=== PATIENT | male | born 1975 | race Caucasian/White ===

== ENCOUNTER 2018-01-14 09:22 | Emergency (ER) | payer BC, SELFPAY ==
[2018-01-14 09:26] VITALS: BP 160/88; PULSE 70; RESP 12; TEMP 37.2; O2SAT 96
--- NOTE | 2018-01-14 10:05 | W.ED.GENAD ---
Discharge Plan Disposition Patient Disposition: HOME Condition: Improving Discharge Details Chief Complaint: Laceration Clinical Impression: Laceration of left upper arm Primary Care Provider: Telma Lobato ED Provider: Rico Guerrier Home Meds and New Rx's Prescriptions: New clindamycin HCl 150 mg capsule 450 mg PO TID Qty: 27 RF: 0 Continue ADVIL 200 MG capsule 200 mg PO PRN RF: 0 loratadine [Claritin] 10 MG tablet 10 mg PO PRN RF: 0 epinephrine [EpiPen 2-George] 0.3 MG/0.3 ML auto-injector 0.3 mg IM PRN Qty: 4 RF: 1 fluticasone [Flonase Allergy Relief] 9.9 ML spray,suspension 9.9 ml NS DAILY Qty: 1 RF: 3 Discharge Instructions Instructions: Care For Your Stitches (ED), Laceration (ED) Additional Instructions: Return for any signs of infection. otherwise keep wound clean and dry and return in 2 weeks for suture removal. Referrals: [facility] Emergency Dept. [Outside] - 2 weeks (for suture removal) Discharge Data Discharge Date/Time-TO BE ENTERED AT DEPARTURE: 01/14/18 12:43 Medical Decision Making Patient presenting to the emergency department for laceration to left upper arm/bicep on medial aspect . Laceration is a triangle in shape and is deep with muscle exposed but it does appear that the fascia is intact. Patient denies any other injury or trauma and physical exam is otherwise unremarkable with full range of motion of left upper extremity, full sensation, normal capillary refill and pulses. Please see procedure for wound closure. wound is 5.5 x 3.5 x 6 cm triangular in shape Patient was given tetanus to update his patient states that it is been greater than 5 years. Given that there was some contamination of the wound and wound was deep patient placed upon clindamycin due to penicillin allergy and patient encouraged to watch for any signs of infection return immediately if these occur. After discussion of diagnosis and plan of care patient is no further needs, questions, or concerns and states clear understanding to return to the emergency department for any worsening symptoms. HPI General Date/Time Provider Initiated Documentation: 01/14/18 09:55. Limitations to Documentation: no limitations. Information obtained by: patient and RN notes reviewed. History of Present Illness 42 year old M presents to the emergency department with the chief complaint of Left upper arm laceration, described as moderate, with intensity rated at 7. Quality is described as aching, and is localized to the left and upper extremity. Patient started experiencing this hour(s) (1.5) and it has been constant. No relieving factors improve symptom(s), No exacerbating factors reported . Patient notes no other symptoms.. Patient did receive the following treatments prior to arrival, none Related Data Home Medications Medication Instructions Recorded Confirmed Advil 200 mg PO PRN 07/27/12 01/14/18 loratadine [Claritin] 10 mg PO PRN 07/27/12 01/14/18 epinephrine [EpiPen 2-George] 0.3 mg IM PRN #4 pen 08/22/14 01/14/18 fluticasone [Flonase Allergy 9.9 ml NS DAILY #1 bottle 08/22/14 01/14/18 Relief] clindamycin HCl 450 mg PO TID #27 cap 01/14/18 Previous Rx's Medication Instructions Recorded clindamycin HCl 450 mg PO TID #27 cap 01/14/18 Allergies Allergy/AdvReac Type Severity Reaction Status Date / Time venom-honey bee Allergy Severe Anaphylaxsi Unverified 01/14/18 09:36 s Penicillins Allergy Unknown Unverified 01/14/18 09:36 General Stated Complaint: Laceration CHRISTIANO: 3 Review of Systems Eyes Denies change in vision ENT Denies neck pain Cardiovascular Denies chest pain, Denies syncope and Denies dyspnea Respiratory Denies dyspnea Gastrointestinal Denies abdominal pain, Denies nausea and Denies vomiting Musculoskeletal Denies back pain and Denies neck pain Integumentary/Breasts Reports as per HPI and Denies rash Neurologic Denies confusion, Denies syncope and Denies sensory deficit Psychiatric Denies confusion PFSH Family History Mother Hypertensive disorder, systemic arterial Diabetes Alcohol abuse Father Hypertensive disorder, systemic arterial Diabetes Sister Hypertensive disorder, systemic arterial Gastric bypass status for obesity Social History Smoking/Tobacco Use Status: Never Surgical History Excision, Lipoma (08/15/12) Exam Const General: cooperative, no acute distress and not ill appearing Orientation: alert, awake and oriented x3 HENMT Mouth: moist mucous membranes Resp Effort & Inspection: normal respiratory effort, able to speak in complete sentences and no respiratory distress Cardio Rate: regular rate Rhythm: regular rhythm Skin General skin exam: no rashes or lesions noted Neuro General: alert, awake, oriented x3, moves all extremities and no focal motor deficits Sensory Exam: no sensory deficits noted Extrem Left upper extremity: shoulder/upper arm Details: axillary nerve sensory function normal, normal ROM and laceration (Medial aspect of the upper humerus); no deformity, elbow/forearm Details: normal to inspection, wrist Details: normal to inspection and hand Details: normal to inspection, normal capillary refill, neuromotor exam normal, neurosensory exam normal and tendon exam normal Shoulder/upper arm images: 1. laceration, deep, Course Vital Signs Temperature 37.2 C 01/14/18 09:26 Pulse 70 01/14/18 09:26 Respiratory Rate 12 01/14/18 09:26 Blood Pressure 160/88 H 01/14/18 09:26 Pulse Oximetry 96 01/14/18 09:26 Temperature 37.2 C 01/14/18 09:26 Temperature Source Skin 01/14/18 09:26 Pulse 70 01/14/18 09:26 Respiratory Rate 12 01/14/18 09:26 Respiratory Effort 01/14/18 09:38 Blood Pressure 160/88 H 01/14/18 09:26 Blood Pressure Position Supine 01/14/18 09:26 Pulse Oximetry 96 01/14/18 09:26 Oxygen Delivery Method Room Air 01/14/18 09:26 Oxygen Flow Rate 0 01/14/18 09:26 Pain Level 7 01/14/18 09:39 Comment drank coffee today 01/14/18 09:26 Procedures Laceration Laceration 1: Site: upper extremity Size (cm): 15 Description: linear, irregular, contaminated and other Depth: involves muscle layer Local Anesthetic: Lidocaine 1% and with Epi Amount of anesthesia used (mL): 9 Pre-repair: wound explored, irrigated extensively and deep structures intact Skin layer closed with: nylon Size (cm): 4-0 Number of sutures: 10 Technique: simple, interrupted Subcutaneous layer closed with: vicryl Size: 5-0 Number of sutures: 4 Technique: simple, interrupted
--- NOTE | 2018-01-14 10:12 | ED.GENADUL_ITS ---
Discharge Plan Disposition Patient Disposition: HOME Condition: Improving Discharge Details Chief Complaint: Laceration Clinical Impression: Laceration of left upper arm Primary Care Provider: Telma Lobato ED Provider: Rico Guerrier Home Meds and New Rx's Prescriptions: New clindamycin HCl 150 mg capsule 450 mg PO TID Qty: 27 RF: 0 Continue ADVIL 200 MG capsule 200 mg PO PRN RF: 0 loratadine [Claritin] 10 MG tablet 10 mg PO PRN RF: 0 epinephrine [EpiPen 2-George] 0.3 MG/0.3 ML auto-injector 0.3 mg IM PRN Qty: 4 RF: 1 fluticasone [Flonase Allergy Relief] 9.9 ML spray,suspension 9.9 ml NS DAILY Qty: 1 RF: 3 Discharge Instructions Instructions: Care For Your Stitches (ED), Laceration (ED) Additional Instructions: Return for any signs of infection. otherwise keep wound clean and dry and return in 2 weeks for suture removal. Referrals: [facility] Emergency Dept. [Outside] - 2 weeks (for suture removal) Discharge Data Discharge Date/Time-TO BE ENTERED AT DEPARTURE: 01/14/18 12:43 Medical Decision Making Patient presenting to the emergency department for laceration to left upper arm/ bicep on medial aspect . Laceration is a triangle in shape and is deep with muscle exposed but it does appear that the fascia is intact. Patient denies any other injury or trauma and physical exam is otherwise unremarkable with full range of motion of left upper extremity, full sensation, normal capillary refill and pulses. Please see procedure for wound closure. wound is 5.5 x 3.5 x 6 cm triangular in shape Patient was given tetanus to update his patient states that it is been greater than 5 years. Given that there was some contamination of the wound and wound was deep patient placed upon clindamycin due to penicillin allergy and patient encouraged to watch for any signs of infection return immediately if these occur. After discussion of diagnosis and plan of care patient is no further needs, questions, or concerns and states clear understanding to return to the emergency department for any worsening symptoms. HPI General Date/Time Provider Initiated Documentation: 01/14/18 09:55 . Limitations to Documentation: no limitations . Information obtained by: patient and RN notes reviewed . History of Present Illness 42 year old M presents to the emergency department with the chief complaint of Left upper arm laceration, described as moderate, with intensity rated at 7. Quality is described as aching, and is localized to the left and upper extremity. Patient started experiencing this hour(s) (1.5) and it has been constant. No relieving factors improve symptom(s), No exacerbating factors reported . Patient notes no other symptoms.. Patient did receive the following treatments prior to arrival, none Related Data Home Medications Medication Instructions Recorded Confirmed Advil 200 mg PO PRN 07/27/12 01/14/18 loratadine [Claritin] 10 mg PO PRN 07/27/12 01/14/18 epinephrine [EpiPen 2-George] 0.3 mg IM PRN #4 pen 08/22/14 01/14/18 fluticasone [Flonase Allergy 9.9 ml NS DAILY #1 bottle 08/22/14 01/14/18 Relief] clindamycin HCl 450 mg PO TID #27 cap 01/14/18 Previous Rx's Medication Instructions Recorded clindamycin HCl 450 mg PO TID #27 cap 01/14/18 Allergies Allergy/AdvReac Type Severity Reaction Status Date / Time venom-honey bee Allergy Severe Anaphylaxsi Unverified 01/14/18 09:36 s Penicillins Allergy Unknown Unverified 01/14/18 09:36 General Stated Complaint: Laceration CHRISTIANO: 3 Review of Systems Eyes Denies change in vision ENT Denies neck pain Cardiovascular Denies chest pain, Denies syncope and Denies dyspnea Respiratory Denies dyspnea Gastrointestinal Denies abdominal pain, Denies nausea and Denies vomiting Musculoskeletal Denies back pain and Denies neck pain Integumentary/Breasts Reports as per HPI and Denies rash Neurologic Denies confusion, Denies syncope and Denies sensory deficit Psychiatric Denies confusion PFSH Family History Mother Hypertensive disorder, systemic arterial Diabetes Alcohol abuse Father Hypertensive disorder, systemic arterial Diabetes Sister Hypertensive disorder, systemic arterial Gastric bypass status for obesity Social History Smoking/Tobacco Use Status: Never Surgical History Excision, Lipoma (08/15/12) Exam Const General: cooperative, no acute distress and not ill appearing Orientation: alert, awake and oriented x3 HENMT Mouth: moist mucous membranes Resp Effort & Inspection: normal respiratory effort, able to speak in complete sentences and no respiratory distress Cardio Rate: regular rate Rhythm: regular rhythm Skin General skin exam: no rashes or lesions noted Neuro General: alert, awake, oriented x3, moves all extremities and no focal motor deficits Sensory Exam: no sensory deficits noted Extrem Left upper extremity: shoulder/upper arm Details: axillary nerve sensory function normal, normal ROM and laceration (Medial aspect of the upper humerus) ; no deformity, elbow/forearm Details: normal to inspection, wrist Details: normal to inspection and hand Details: normal to inspection, normal capillary refill, neuromotor exam normal, neurosensory exam normal and tendon exam normal Shoulder/upper arm images: 2 1. laceration, deep, Course Vital Signs Temperature 37.2 C 01/14/18 09:26 Pulse 70 01/14/18 09:26 Respiratory Rate 12 01/14/18 09:26 Blood Pressure 160/88 H 01/14/18 09:26 Pulse Oximetry 96 01/14/18 09:26 Temperature 37.2 C 01/14/18 09:26 Temperature Source Skin 01/14/18 09:26 Pulse 70 01/14/18 09:26 Respiratory Rate 12 01/14/18 09:26 Respiratory Effort 01/14/18 09:38 Blood Pressure 160/88 H 01/14/18 09:26 Blood Pressure Position Supine 01/14/18 09:26 Pulse Oximetry 96 01/14/18 09:26 Oxygen Delivery Method Room Air 01/14/18 09:26 Oxygen Flow Rate 0 01/14/18 09:26 Pain Level 7 01/14/18 09:39 Comment drank coffee today 01/14/18 09:26 Procedures Laceration Laceration 1: Site: upper extremity Size (cm): 15 Description: linear, irregular, contaminated and other Depth: involves muscle layer Local Anesthetic: Lidocaine 1% and with Epi Amount of anesthesia used (mL): 9 Pre-repair: wound explored, irrigated extensively and deep structures intact Skin layer closed with: nylon Size (cm): 4-0 Number of sutures: 10 Technique: simple, interrupted Subcutaneous layer closed with: vicryl Size: 5-0 Number of sutures: 4 Technique: simple, interrupted
[2018-01-14 12:41] VITALS: BP 133/80; PULSE 88; RESP 18; TEMP 36.8; O2SAT 96
== END 2018-01-14 12:43 | disposition home or self-care (01) ==
PROVIDERS: Emergency Provider Nurse Practitioner Family; PCP Nurse Practitioner
DX: S41.112A Laceration without foreign body of left upper arm, initial encounter (principal); V18.0XXA Pedal cycle driver injured in noncollision transport accident in nontraffic accident, initial encounter; Y93.55 Activity, bike riding
CPT/HCPCS: 12035; 90471; 99283

== ENCOUNTER 2018-01-28 16:46 | Emergency (ER) | payer BC, SELFPAY ==
[2018-01-28 16:54] VITALS: BP 139/88; PULSE 84; RESP 15; TEMP 36.5; O2SAT 96
--- NOTE | 2018-01-28 17:05 | ED.GENADUL_ITS ---
Discharge Plan Disposition Patient Disposition: HOME Condition: Stable Discharge Details Chief Complaint: SutureRem Clinical Impression: Visit for suture removal Primary Care Provider: Telma Lobato ED Provider: Lion Sultana Home Meds and New Rx's Prescriptions: Continue ADVIL 200 MG capsule 200 mg PO PRN RF: 0 loratadine [Claritin] 10 MG tablet 10 mg PO PRN RF: 0 epinephrine [EpiPen 2-George] 0.3 MG/0.3 ML auto-injector 0.3 mg IM PRN Qty: 4 RF: 1 fluticasone [Flonase Allergy Relief] 9.9 ML spray,suspension 9.9 ml NS DAILY Qty: 1 RF: 3 clindamycin HCl 150 mg capsule 450 mg PO TID Qty: 27 RF: 0 Discharge Instructions Instructions: Stitches Removal (ED) Discharge Data Discharge Physician: iLon Sultana Medical Decision Making pt here for suture removal, wound is well healed and no evidnece of infection. Removed 10 sutures without incident, will d/c home Differential Diagnosis suture removal HPI General Mode of arrival: ambulatory . Date/Time Provider Initiated Documentation: 01/28/18 16:59 . Limitations to Documentation: no limitations . Information obtained by: patient . History of Present Illness 42 year old M presents to the emergency department with the chief complaint of left arm suture removal, described as mild, and is localized to the left and upper extremity. Patient reports no radiation. No relieving factors improve symptom(s), No exacerbating factors reported . Patient notes no other symptoms.. Related Data Home Medications Medication Instructions Recorded Confirmed Advil 200 mg PO PRN 07/27/12 01/14/18 loratadine [Claritin] 10 mg PO PRN 07/27/12 01/14/18 epinephrine [EpiPen 2-George] 0.3 mg IM PRN #4 pen 08/22/14 01/14/18 fluticasone [Flonase Allergy 9.9 ml NS DAILY #1 bottle 08/22/14 01/14/18 Relief] clindamycin HCl 450 mg PO TID #27 cap 01/14/18 Previous Rx's Medication Instructions Recorded clindamycin HCl 450 mg PO TID #27 cap 01/14/18 Allergies Allergy/AdvReac Type Severity Reaction Status Date / Time venom-honey bee Allergy Severe Anaphylaxsi Unverified 01/14/18 09:36 s Penicillins Allergy Unknown Unverified 01/14/18 09:36 General Stated Complaint: SutureRem CHRISTIANO: 5 Review of Systems Review of Systems All systems reviewed & are unremarkable except as noted in HPI and below Constitutional Denies chills and Denies fever(s) Eyes Denies loss of vision ENT Denies change in voice Cardiovascular Denies chest pain and Denies dyspnea Respiratory Denies dyspnea Gastrointestinal Denies nausea Genitourinary Denies dysuria Integumentary/Breasts Denies rash Neurologic Denies loss of vision Endocrine Denies heat intolerance PFSH Family History Mother Hypertensive disorder, systemic arterial Diabetes Alcohol abuse Father Hypertensive disorder, systemic arterial Diabetes Sister Hypertensive disorder, systemic arterial Gastric bypass status for obesity Social History Smoking/Tobacco Use Status: Never Surgical History Excision, Lipoma (08/15/12) Exam Const General: no acute distress Orientation: alert HENOR Head: normal to inspection Ears: external ears normal General nose exam: external nose normal Mouth: moist mucous membranes Eyes General: appearance normal, both eyes and all related structures Neck Neck: normal visual inspection Resp Effort & Inspection: normal respiratory effort and able to speak in complete sentences Cardio Rate: regular rate Skin General skin exam: no rashes or lesions noted Neuro General: alert and oriented x3 Extrem General: normal capillary refill and other (left posterior upper arm incision with well healed wound, no drainage or redness or pain. ) Psych Mental Status: mental status grossly normal Course Vital Signs Temperature 36.5 C 01/28/18 16:54 Pulse 84 01/28/18 16:54 Respiratory Rate 15 01/28/18 16:54 Blood Pressure 139/88 01/28/18 16:54 Pulse Oximetry 96 01/28/18 16:54 Temperature 36.5 C 01/28/18 16:54 Temperature Source Temporal Artery Scan 01/28/18 16:54 Pulse 84 01/28/18 16:54 Respiratory Rate 15 01/28/18 16:54 Respiratory Effort Non-Labored 01/28/18 16:56 Blood Pressure 139/88 01/28/18 16:54 Blood Pressure Position Sitting 01/28/18 16:54 Pulse Oximetry 96 01/28/18 16:54 Oxygen Delivery Method Room Air 01/28/18 16:54 Oxygen Flow Rate 0 01/28/18 16:54 Pain Level 0 01/28/18 16:54
== END 2018-01-28 17:29 | disposition home or self-care (01) ==
LOC: ER 17:10
PROVIDERS: Emergency Provider Emergency Medicine; PCP Nurse Practitioner
DX: Z48.02 Encounter for removal of sutures (principal); S41.112D Laceration without foreign body of left upper arm, subsequent encounter; V18.0XXD Pedal cycle driver injured in noncollision transport accident in nontraffic accident, subsequent encounter

== ENCOUNTER 2018-05-13 10:22 | Emergency (ER) | payer OTHER, SELFPAY ==
--- NOTE | 2018-05-13 10:29 | NUR.NOTE ---
Nursing Note: Pt seen in waiting room . no acute distress. c/o R wrist pain, ROM intact. given ice pack
[2018-05-13 10:37] VITALS: BP 143/73; PULSE 70; RESP 18; TEMP 36.7; O2SAT 98
--- NOTE | 2018-05-13 11:01 | DI.RAD_ITS ---
SYMPTOMS/DIAGNOSIS: WRIST PAIN AFTER FALL RIGHT WRIST: Four views. No priors. No acute fracture or dislocation is seen. There is a very tiny well corticated osseous density adjacent to the ulnar styloid process. There is also a tiny well corticated osseous fragment seen interposed between the distal radius and ulna. These appear old and likely reflect prior injury. The soft tissues show no radiopaque foreign bodies. IMPRESSION: No acute fracture or dislocation.
--- NOTE | 2018-05-13 11:48 | W.ED.GENAD ---
Discharge Plan Disposition Patient Disposition: HOME Condition: Stable Discharge Details Chief Complaint: Orthopedic Clinical Impression: Sprain of wrist, right Primary Care Provider: Telma Lobato ED Provider: Rico Guerrier Home Meds and New Rx's Prescriptions: Continued ADVIL 200 MG capsule 200 mg PO PRN RF: 0 loratadine [Claritin] 10 MG tablet 10 mg PO PRN RF: 0 epinephrine [EpiPen 2-George] 0.3 MG/0.3 ML auto-injector 0.3 mg IM PRN Qty: 4 RF: 1 fluticasone [Flonase Allergy Relief] 9.9 ML spray,suspension 9.9 ml NS DAILY Qty: 1 RF: 3 Discontinued clindamycin HCl 150 mg capsule 450 mg PO TID Qty: 27 RF: 0 Discharge Instructions Instructions: Wrist Sprain (ED) Additional Instructions: Please use the provided wrist splint for the next 1-2 weeks and slowly advance activity as tolerated by discomfort. You may continue to use [id number] pain medication as needed for pain control and apply ice for 20 minutes at a time for the next 48 hours. If not improving over the next couple weeks please follow-up with orthopedist as needed for reassessment Referrals: Riky Linda MD [ [facility]] - Tigre Guerra MD [ [facility]] - Nolberto Gruber MD [ [facility]] - Discharge Data Discharge Date/Time-TO BE ENTERED AT DEPARTURE: 05/13/18 12:15 Medical Decision Making Patient presenting to the emergency department for chief complaint of right wrist pain. Patient states slip and fall on an outstretched hand. Patient does have dorsal wrist pain above the metacarpal bones but no anatomical snuffbox tenderness, no reduction of range of motion, mild diffuse swelling, normal pulse sensation tendon and neurological examination. Given carpal bone tenderness I do feel that radiological imaging is warranted to rule out acute fracture but more suspect sprain of the wrist due to fall Review of radiological imaging shows no acute fracture and radiologist also states same interpretation. Patient placed in universal wrist splint and encouraged to wear this over the next week and then to follow-up with orthopedist if symptoms are not improving over the next 2 weeks. After discussion of diagnosis and plan of care patient has no further needs, questions, or concerns and states clear understanding to return to the emergency department for any worsening symptoms. HPI General Mode of arrival: ambulatory. Date/Time Provider Initiated Documentation: 05/13/18 10:59. Limitations to Documentation: no limitations. Information obtained by: patient. History of Present Illness 42 year old M presents to the emergency department with the chief complaint of right wrist pain after fall, described as mild, with intensity rated at 2. Quality is described as aching, and is localized to the right and upper extremity. Patient started experiencing this minute(s) (30) and it has been constant. No relieving factors improve symptom(s), Movement worsens symptoms . Patient notes no other symptoms.. Patient did receive the following treatments prior to arrival, NSAID Related Data Home Medications Medication Instructions Recorded Confirmed Advil 200 mg PO PRN 07/27/12 01/14/18 loratadine [Claritin] 10 mg PO PRN 07/27/12 01/14/18 epinephrine [EpiPen 2-George] 0.3 mg IM PRN #4 pen 08/22/14 01/14/18 fluticasone [Flonase Allergy 9.9 ml NS DAILY #1 bottle 08/22/14 01/14/18 Relief] Allergies Allergy/AdvReac Type Severity Reaction Status Date / Time venom-honey bee Allergy Severe Anaphylaxsi Verified 05/03/18 10:54 s Penicillins Allergy Unknown Unverified 01/14/18 09:36 General Stated Complaint: Orthopedic CHRISTIANO: 4 Review of Systems Cardiovascular Denies syncope Musculoskeletal Reports as per HPI, Reports numbness (but now resolved) and Denies tingling Integumentary/Breasts Denies rash, Denies sores and Denies wounds Neurologic Denies syncope, Reports numbness (but now resolved) and Denies tingling [facility] Medical History Benign neoplasm of large intestine (Resolved) Laceration of upper arm (Resolved) Surgical History Excision, Lipoma (08/15/12) Family History Mother Hypertensive disorder, systemic arterial Diabetes Alcohol abuse Father Hypertensive disorder, systemic arterial Diabetes Sister Hypertensive disorder, systemic arterial Gastric bypass status for obesity Social History household members: spouse current occupational status: employed 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 [employer] leisure activities: sports Smoking/Tobacco Use Status: Never alcohol intake: current alcohol intake frequency: a few times a month Alcohol type: beer Exam Const General: cooperative and no acute distress Orientation: alert, awake and oriented x3 Resp Effort & Inspection: normal respiratory effort and able to speak in complete sentences Cardio Rate: regular rate Rhythm: regular rhythm Extrem Right upper extremity: elbow/forearm Details: normal to inspection and normal ROM; no tenderness, wrist Details: tenderness Location: of the dorsal wrist and of the volar wrist; not of the distal radius, not of the distal ulna and not of the anatomic snuffbox, swelling, normal ROM and radial pulse present Details: 2+; no abrasions, no lacerations, no ecchymosis, no crepitus, no penetrating wound and no deformity and hand Details: normal to inspection, normal capillary refill, neuromotor exam normal, neurosensory exam normal, tendon exam normal and normal ROM of fingers; no tenderness Course Vital Signs Temperature 36.7 C 05/13/18 10:37 Pulse 70 05/13/18 10:37 Respiratory Rate 18 05/13/18 10:37 Blood Pressure 143/73 H 05/13/18 10:37 Pulse Oximetry 98 05/13/18 10:37 Temperature 36.7 C 05/13/18 10:37 Temperature Source Temporal Artery Scan 05/13/18 10:37 Pulse 70 05/13/18 10:37 Respiratory Rate 18 05/13/18 10:37 Blood Pressure 143/73 H 05/13/18 10:37 Blood Pressure Position Sitting 05/13/18 10:37 Pulse Oximetry 98 05/13/18 10:37 Oxygen Delivery Method Room Air 05/13/18 10:37 Oxygen Flow Rate 0 05/13/18 10:37
--- NOTE | 2018-05-13 11:56 | ED.GENADUL_ITS ---
Discharge Plan Disposition Patient Disposition: HOME Condition: Stable Discharge Details Chief Complaint: Orthopedic Clinical Impression: Sprain of wrist, right Primary Care Provider: Telma Lobato ED Provider: Rico Guerrier Home Meds and New Rx's Prescriptions: Continued ADVIL 200 MG capsule 200 mg PO PRN RF: 0 loratadine [Claritin] 10 MG tablet 10 mg PO PRN RF: 0 epinephrine [EpiPen 2-George] 0.3 MG/0.3 ML auto-injector 0.3 mg IM PRN Qty: 4 RF: 1 fluticasone [Flonase Allergy Relief] 9.9 ML spray,suspension 9.9 ml NS DAILY Qty: 1 RF: 3 Discontinued clindamycin HCl 150 mg capsule 450 mg PO TID Qty: 27 RF: 0 Discharge Instructions Instructions: Wrist Sprain (ED) Additional Instructions: Please use the provided wrist splint for the next 1-2 weeks and slowly advance activity as tolerated by discomfort. You may continue to use [id number] pain medication as needed for pain control and apply ice for 20 minutes at a time for the next 48 hours. If not improving over the next couple weeks please follow-up with orthopedist as needed for reassessment Referrals: Riky Linda MD [ [facility] STAFF PHYSICIAN] - Tigre Guerra MD [ [facility] STAFF PHYSICIAN] - Nolberto Gruber MD [ [facility] STAFF PHYSICIAN] - Discharge Data Discharge Date/Time-TO BE ENTERED AT DEPARTURE: 05/13/18 12:15 Medical Decision Making Patient presenting to the emergency department for chief complaint of right wrist pain. Patient states slip and fall on an outstretched hand. Patient does have dorsal wrist pain above the metacarpal bones but no anatomical snuffbox tenderness, no reduction of range of motion, mild diffuse swelling, normal pulse sensation tendon and neurological examination. Given carpal bone tenderness I do feel that radiological imaging is warranted to rule out acute fracture but more suspect sprain of the wrist due to fall Review of radiological imaging shows no acute fracture and radiologist also states same interpretation. Patient placed in universal wrist splint and encouraged to wear this over the next week and then to follow-up with orthopedist if symptoms are not improving over the next 2 weeks. After discussion of diagnosis and plan of care patient has no further needs, questions, or concerns and states clear understanding to return to the emergency department for any worsening symptoms. HPI General Mode of arrival: ambulatory . Date/Time Provider Initiated Documentation: 05/13/18 10:59 . Limitations to Documentation: no limitations . Information obtained by: patient . History of Present Illness 42 year old M presents to the emergency department with the chief complaint of right wrist pain after fall, described as mild, with intensity rated at 2. Quality is described as aching, and is localized to the right and upper extremity. Patient started experiencing this minute(s) (30) and it has been constant. No relieving factors improve symptom(s), Movement worsens symptoms . Patient notes no other symptoms.. Patient did receive the following treatments prior to arrival, NSAID Related Data Home Medications Medication Instructions Recorded Confirmed Advil 200 mg PO PRN 07/27/12 01/14/18 loratadine [Claritin] 10 mg PO PRN 07/27/12 01/14/18 epinephrine [EpiPen 2-George] 0.3 mg IM PRN #4 pen 08/22/14 01/14/18 fluticasone [Flonase Allergy 9.9 ml NS DAILY #1 bottle 08/22/14 01/14/18 Relief] Allergies Allergy/AdvReac Type Severity Reaction Status Date / Time venom-honey bee Allergy Severe Anaphylaxsi Verified 05/03/18 10:54 s Penicillins Allergy Unknown Unverified 01/14/18 09:36 General Stated Complaint: Orthopedic CHRISTIANO: 4 Review of Systems Cardiovascular Denies syncope Musculoskeletal Reports as per HPI, Reports numbness (but now resolved) and Denies tingling Integumentary/Breasts Denies rash, Denies sores and Denies wounds Neurologic Denies syncope, Reports numbness (but now resolved) and Denies tingling [facility] Medical History Benign neoplasm of large intestine (Resolved) Laceration of upper arm (Resolved) Surgical History Excision, Lipoma (08/15/12) Family History Mother Hypertensive disorder, systemic arterial Diabetes Alcohol abuse Father Hypertensive disorder, systemic arterial Diabetes Sister Hypertensive disorder, systemic arterial Gastric bypass status for obesity Social History household members: spouse current occupational status: employed 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 [employer] leisure activities: sports Smoking/Tobacco Use Status: Never alcohol intake: current alcohol intake frequency: a few times a month Alcohol type: beer Exam Const General: cooperative and no acute distress Orientation: alert, awake and oriented x3 Resp Effort & Inspection: normal respiratory effort and able to speak in complete sentences Cardio Rate: regular rate Rhythm: regular rhythm Extrem Right upper extremity: elbow/forearm Details: normal to inspection and normal ROM; no tenderness, wrist Details: tenderness Location: of the dorsal wrist and of the volar wrist; not of the distal radius, not of the distal ulna and not of the anatomic snuffbox, swelling, normal ROM and radial pulse present Details: 2+; no abrasions, no lacerations, no ecchymosis, no crepitus, no penetrating wound and no deformity and hand Details: normal to inspection, normal capillary refill, neuromotor exam normal, neurosensory exam normal, tendon exam normal and normal ROM of fingers; no tenderness Course Vital Signs Temperature 36.7 C 05/13/18 10:37 Pulse 70 05/13/18 10:37 Respiratory Rate 18 05/13/18 10:37 Blood Pressure 143/73 H 05/13/18 10:37 Pulse Oximetry 98 05/13/18 10:37 Temperature 36.7 C 05/13/18 10:37 Temperature Source Temporal Artery Scan 05/13/18 10:37 Pulse 70 05/13/18 10:37 Respiratory Rate 18 05/13/18 10:37 Blood Pressure 143/73 H 05/13/18 10:37 Blood Pressure Position Sitting 05/13/18 10:37 Pulse Oximetry 98 05/13/18 10:37 Oxygen Delivery Method Room Air 05/13/18 10:37 Oxygen Flow Rate 0 05/13/18 10:37
[2018-05-13 12:13] VITALS: BP 143/73; PULSE 70; RESP 18; TEMP 36.7; O2SAT 98
== END 2018-05-13 12:15 | disposition home or self-care (01) ==
PROVIDERS: Emergency Provider Nurse Practitioner Family; PCP Nurse Practitioner
DX: S63.501A Unspecified sprain of right wrist, initial encounter (principal); W00.0XXA Fall on same level due to ice and snow, initial encounter
CPT/HCPCS: 29125; 99283; 73110; 99282; L3908

== ENCOUNTER 2022-02-12 18:47 | Emergency (ER) | payer BC, SELFPAY ==
[2022-02-12 19:14] VITALS: BP 161/90; PULSE 77; RESP 19; TEMP 36.9; O2SAT 97
--- NOTE | 2022-02-12 19:58 | W.ED.GENAD ---
Discharge Plan Disposition Patient Disposition: HOME Condition: Stable Discharge Details Clinical Impression: Left inguinal hernia Primary Care Provider: Katelyn Germain ED Provider: Garo Child Home Meds and New Rx's Prescriptions: No Action tramadol 50 mg tablet 50 mg PO Q8H PRN (Reason: pain) Qty: 9 0RF Rx Instructions: Take 1 tablet by mouth every 8 hours as needed for severe pain. Be careful this medication is addictive. Discharge Instructions Instructions: Inguinal Hernia (ED) Additional Instructions: Please rest over the next few days. No lifting of objects or than 20 pounds. No bending or lifting. Try to avoid bearing down. Please take ibuprofen over the counter. Take 600mg by mouth every 6 hours as needed for pain. Please follow-up with general surgery. Call to schedule appointment. Please contact your primary care physician to arrange follow-up. Return to the ER immediately for any worsening or new concerning symptoms. Referrals: [facility] [Provider Group] Katelyn Germain, GERENTOLOGICAL PHYSIOTHERAPIST [Primary Care Provider] - Discharge Data Discharge Date/Time-TO BE ENTERED AT DEPARTURE: 02/12/22 20:31 Medical Decision Making 46-year-old male with history of left inguinal hernia, here with increased pain left inguinal area. No hernia appreciated on exam. Patient is tender left inguinal fold but otherwise benign exam. No peritoneal findings. I suspect he has intermittent herniation. ED presentation was reviewed with on-call general surgery recommends outpatient follow-up. Usual customary discharge instructions were reviewed with the patient. HPI General Mode of arrival: ambulatory. Date/Time Provider Initiated Documentation: 02/12/22 19:23. Limitations to Documentation: no limitations. Information obtained by: patient. HPI Narrative: 46-year-old male here with chief complaint of left groin pain. Patient notes he has known hernia in the left groin. He has been doing heavy lifting at work and pain is worsened over the past few days. Pain is in certain positions. No associated nausea or vomiting. Related Data Home Medications Medication Instructions Recorded Confirmed tramadol 50 mg tablet 50 mg PO Q8H PRN pain #9 tabs 02/27/22 Previous Rx's Medication Instructions Recorded tramadol 50 mg tablet 50 mg PO Q8H PRN pain #9 tabs 02/27/22 Allergies Allergy/AdvReac Type Severity Reaction Status Date / Time venom-honey bee Allergy Severe Anaphylaxsi Verified 02/27/22 09:19 s Penicillins Allergy Unknown Verified 02/27/22 09:19 General Stated Complaint: Abd Prob CHRISTIANO: 3 Review of Systems All systems reviewed & are unremarkable except as noted in HPI and below Constitutional Constitutional: Denies fever(s) Gastrointestinal Gastrointestinal: Reports as per HPI PFSH All Active Problems Left inguinal hernia (Acute) Lipoma (Acute 08/08/12) Medical History Allergic rhinitis (08/08/12) 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 Family History Mother Hypertensive disorder, systemic arterial Alcohol abuse Depression Dementia Father Hypertensive disorder, systemic arterial Cancer prostate cancer Prostate cancer Sister Hypertensive disorder, systemic arterial Gastric bypass status for obesity Social History Smoking/Tobacco Use Status: Never Smoking risk assessment performed?: Yes Alcohol Intake: current Alcohol Intake frequency: a few times a month Alcohol type: beer Drug use: Occasionally Substance use type: marijuana Adopted: No Caregiver/Support person: No Household members: spouse Number of Children: 2 number of grandchildren: 0 Education Level: other Details: associates degree Do you need help understanding health information?: Rarely 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 Pets and animals: Yes (1 dog) Pets and animals: dog(s) Sexually active: Yes Do you think of yourself as: straight/heterosexual Current gender identity: male What is your relationship status?: How often do you talk on the phone with friends or family?: once per week How often do you get together with friends or relatives?: once per week Do you belong to any clubs or organized social groups?: no Panel score (0-1 are the most socially isolated patients): 1 What type of physical activity do you participate in: walking, regular exercise and additional Details: jump rope, golf, walking Duration: 15-30 minutes/day Frequency: 3-4 times per week Special thalia needs: No Seatbelt use: always Helmet use: Yes Helmet use: always Drive intox or ride w/intox truck driver salesperson: No Do you feel safe at home: Yes Do you feel safe in your relationship?: Yes Exam Const General: cooperative and no acute distress Neck Neck: trachea midline and supple Resp Auscultation: clear to auscultation bilaterally, no rales, no rhonchi and no wheezes Cardio Rate: regular rate and not tachycardic Rhythm: regular rhythm GI Palpation: soft, not firm, no guarding, no masses, not rigid and tender in the LLQ Auscultation: normal bowel sounds Other: No hernia palpable Other: No testicular swelling or hernia present Skin General skin exam: no rashes or lesions noted Neuro General: patient alert, patient awake and tone normal Extrem General: no edema Course Vital Signs Vital signs: Vital Signs Temperature 36.9 C 02/12/22 19:14 Pulse 77 02/12/22 19:14 Respiratory Rate 19 02/12/22 19:14 Blood Pressure 161/90 H 02/12/22 19:14 Pulse Oximetry 97 02/12/22 19:14 Temperature 36.9 C 02/12/22 19:14 Temperature Source Temporal Artery Scan 02/12/22 19:14 Pulse 77 02/12/22 19:14 Respiratory Rate 19 02/12/22 19:14 Respiratory Effort Non-Labored 02/12/22 19:17 Blood Pressure 161/90 H 02/12/22 19:14 Blood Pressure Position Supine 02/12/22 19:14 Pulse Oximetry 97 02/12/22 19:14 Oxygen Delivery Method Room Air 02/12/22 19:14 Oxygen Flow Rate 0 02/12/22 19:14 Pain Level 7 02/12/22 19:14
[2022-02-12] MEDS: Ibuprofen 600 MG TAB PO (20:08)
--- NOTE | 2022-02-12 20:11 | NUR.NOTE ---
Nursing Note: Referral faxed to [facility] for inguinal hernia/symptomatic; within 2 weeks.
== END 2022-02-12 20:31 | disposition home or self-care (01) ==
PROVIDERS: Emergency Provider Student in an Organized Health Care Education/Training Program; PCP Nurse Practitioner Adult Health
DX: K40.90 Unilateral inguinal hernia, without obstruction or gangrene, not specified as recurrent (principal)
CPT/HCPCS: 99283

== ENCOUNTER 2022-02-27 09:02 | Day surgery (SDC) | payer BC, SELFPAY ==
[2022-02-27] VITALS (12 sets, daily range): BP systolic 100–156; BP diastolic 55–99; PULSE 53–64; RESP 11–99; TEMP 36.3–36.5; O2SAT 94–100; BMI 31.4
--- NOTE | 2022-02-27 05:52 | PDOC.DSDIS_ITS ---
Date of service: 02/27/22 Time of Service: 13:19 Discharge Plan Disposition Patient Disposition: HOME Condition: Good Discharge Details Reason For Visit: left inguinal and umbilical hernia repairs Attending Provider: Guevara Morley Primary Care Provider: Katelyn Germain Home Meds and New Rx's Prescriptions: New tramadol 50 mg tablet 50 mg PO Q8H PRN (Reason: pain) Qty: 9 0RF Rx Instructions: Take 1 tablet by mouth every 8 hours as needed for severe pain. Be careful this medication is addictive. Discharge Instructions Instructions: Inguinal Hernia Repair (DC), Umbilical Hernia Repair (GEN) Additional Instructions: 1. Resume all of your medications. 2. Okay to use tylenol and ibuprofen over the counter as needed. 3. Use tramadol as needed for severe pain. 4. Leave bandage in place for 24 hours, then remove. You will see a slimey yellow gauze in your belly button, take that out. 5. Shower with warm soapy water. Pat dry. Use a bandaid if needed to protect your clothing. 6. No soaking or tub baths until I see you in the office. 7. No heavy lifting until I see you in the office. 8.Call the office (or go directly to the emergency room after hours) if you notice any of the following: Develop chills (warm to touch), or if you have a thermometer and your temperature is above 101 Difficulty breathing or difficultly swallowing Persistent vomiting Any bleeding ? exceeding one tablespoon 6. Call your physician if the site where your intravenous was started becomes red, swollen, painful, and warm to touch. Referrals: Guevara Morley MD [ [facility] STAFF PHYSICIAN] - (10-14 days routine follow up) Activity:: Activity as Tolerated Remove Dressings/Wound Care:: 24 hours Shower/Bathe:: 24 hours Diet:: As Tolerated Discharge Orders Discharge Orders: Discharge Order (Routine); Ordered 02/27/22 Ordered By: Guevara Morley DS: Diagnosis Discharge Diagnosis (1) Left inguinal hernia: Status: Acute Asessment and Plan: Left inguinal hernia repair with mesh and primary closure of umbilical hernia
--- NOTE | 2022-02-27 05:54 | ROE_ITS ---
Date of service: 02/27/22 Time of Service: 14:17 Operative Note Operative Note DATE OF PROCEDURE: 02/27/22 PRE-OP DIAGNOSIS: Left inguinal hernia and umbilical hernia POST-OP DIAGNOSIS: other (Indirect left inguinal hernia and umbilical hernia) PROCEDURE: Open left inguinal herniorrhaphy with mesh patch and plug, open primary repair of umbilical hernia SURGEON: Guevara Morley ANESTHESIA TYPE: General:No Airway Refer to Anesthesia Record ESTIMATED BLOOD LOSS: 25 PATHOLOGY: none sent COMPLICATIONS: None Patient was transported to: PACU Patient's condition: stable Implants: Medium mesh patch and plug Indications: Lion is a 46-year-old male with a left inguinal hernia that is increasing in size and becoming more painful. Additionally, he is got an umbilical hernia that has also been enlarging in size Procedure Description: I began by confirming the correct site with the patient. After the induction of general anesthesia, the surgical site was then prepped and draped in the usual fashion. I established a large local field block with local anesthetic. I began by making an oblique incision over the left inguinal region. I dissected down through the skin to the deep fascia. Next, I incised the fascia along the length of the inguinal canal to the external ring. I then carefully identified the ilioinguinal nerve and elevated off the cord structures.. Once this was complete, I bluntly dissected the shelving edge of the inguinal ligament down towards the pubic tubercle. Here, I encircled all cord structures with a [place] drain. Next, I began dissecting the specific cord structures. Great care was taken to spare the vas deferens and the blood supply to the testicle. Next, I isolated the hernia sac from the other inguinal structures. I reduced it back to its normal anatomic position. I then used a medium Perfix mesh plug to obliterate the defect at the internal ring. I fixed in place with interrupted Prolene stitches. Next, I buttressed the posterior floor of the inguinal canal with a large mesh patch. I started by fixing it to the pubic tubercle. Next, I used Prolene sutures to affix it to the shelving edge of the inguinal ligament and the conjoined tendon. Laterally I tacked it to the transversalis fascia and reconstructed an internal ring without any strain on the cord structures. Once this was complete, I irrigated the surgical field. It appeared hemostatic. I then closed the anterior portion of the fascia to reconstruct the front wall of the inguinal canal. I did this with interrupted Vicryl stitches. Once again, I irrigated the surgical field and inspected for hemostasis. Finally, I approximated the superficial fascia and the deep layers of the skin with absorbable suture. Skin was closed with a running subcuticular stitch. Next, I turned my attention to the umbilical hernia. I made an infraumbilical semicircular incision and dissected down to the base of the umbilicus. I this off the underlying tissues. I dissected the hernia down to the fascia. I reduced the hernia into the peritoneal cavity. The fascial defect was about 1 cm?. Therefore, I closed it primarily with 2-0 Prolene suture. I irrigated the surgical field. I then affixed the underside of the umbilicus down onto the fascia with an interrupted Vicryl stitch. I closed the skin defect with interrupted Vicryl's. Xeroform gauze was used to dress the umbilical hernia, and Mepilex dressings were applied. Patient was then awakened from anesthesia and transferred to the recovery unit.
[2022-02-27] MEDS: Gabapentin 300 MG CAP 600 MG PO (09:41)
[2022-02-27] MEDS: Celecoxib 200 MG CAP PO (09:42)
[2022-02-27] MEDS: Acetaminophen 500 MG TAB 1000 MG PO (09:42)
[2022-02-27] MEDS: VANCOMYCIN/WATER (PEG) 2 GM/400 ML BAG IVPB (09:42)
[2022-02-27] MEDS: Lactated Ringers 1,000 ML 80 ML IV (09:42)
--- NOTE | 2022-02-27 09:54 | W.ANESPRE ---
General Info Date of Service Date Performed: 02/27/22 Height: 5 ft 10 in Weight: 99.3 kg Body Mass Index (BMI): 31.4 Surgical Procedure: Operation Date: 02/27/22 10:55 Proposed Procedure Side Surgeon p Herniorrhaphy Inguinal and Umbilical w/Mesh Left Guevara Morley MD Meds Allergies and Home Medications Allergies Allergy/AdvReac Type Severity Reaction Status Date / Time venom-honey bee Allergy Severe Anaphylaxsi Verified 02/27/22 09:19 s Penicillins Allergy Unknown Verified 02/27/22 09:19 Home Medication Medication Instructions Recorded Unknown [No Known Home Meds] 02/12/22 Current Visit Medications: Current Medications Generic Name Dose Route Start Last Admin Trade Name Freq PRN Reason Stop Dose Admin Acetaminophen 1,000 mg 02/27/22 06:00 02/27/22 09:42 Acetaminophen 500 Mg Tab PO 03/28/22 23:59 1,000 mg PREOP CRUZ Administration Celecoxib 200 mg 02/27/22 06:00 02/27/22 09:42 Celecoxib 200 Mg Cap PO 03/28/22 23:59 200 mg PREOP CRUZ Administration Gabapentin 600 mg 02/27/22 06:00 02/27/22 09:41 Gabapentin 300 Mg Cap PO 03/28/22 23:59 600 mg PREOP CRUZ Administration Ringer's Solution 1,000 mls @ 80 mls/hr 02/27/22 06:00 02/27/22 09:42 IV 03/28/22 23:59 80 mls/hr INFUSION CRUZ Administration Vancomycin/PEG/NADA/Lysine/Water 2 gm in 400 mls @ 200 mls/hr 02/27/22 06:00 02/27/22 09:42 Vancocin Injection IVPB 02/27/22 18:00 200 mls/hr PREOP CRUZ Administration Ondansetron HCl 8 mg/ Sodium 54 mls @ 200 mls/hr 02/27/22 05:54 Chloride IVPB Q6H PRN PRN IV Miscellaneous Supplies 1 each 02/27/22 06:00 Iv Access IV 03/28/22 23:59 DIRECTED CRUZ Morphine Sulfate 2 mg 02/27/22 05:54 Morphine 4 Mg/Ml Syr IVP Q1H PRN PRN Sodium Chloride 0 ml 02/27/22 06:00 Normal Saline Flush 10 Ml Syr IV 03/28/22 23:59 PRN PRN Sodium Chloride 0 ml 02/27/22 06:00 Normal Saline 10 Ml Vial IJ 03/28/22 23:59 DIRECTED PRN Sterile Water 0 ml 02/27/22 06:00 Water,Injection,Sterile 10 Ml Vial IJ 03/28/22 23:59 DIRECTED PRN Tramadol HCl 50 mg 02/27/22 05:54 Tramadol 50 Mg Tab PO Q6H PRN PRN Pain PFSH Active Problems Active Problems: Problem Status Onset Code Left inguinal hernia K40.90 Lipoma 08/08/12 D17.9 Medical History Medical History Allergic rhinitis (08/08/12) 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 Tobacco Smoking/Tobacco Use Status: Never Alcohol Alcohol Intake: current Alcohol intake frequency: a few times a month Alcohol type: beer Substance Use Substance use: Occasionally Substance use type: marijuana Vital Signs and Lab Results Vital Signs Most Recent Vital Signs in EMR: Most Recent Vital Signs Temp Pulse Resp BP Pulse Ox 36.5 C 60 16 146/87 H 100 02/27/22 09:20 02/27/22 09:20 02/27/22 09:20 02/27/22 09:20 02/27/22 09:20 Lab Results Blood Type / Crossmatch: No Data to Display Complete Blood Count: No Data to Display Complete Metabolic Panel: No Data to Display Liver Function Panel: No Data to Display Coagulation Panel: No Data to Display Cardiac Panel: No Data to Display Arterial Blood Gas: No Data to Display Venous Blood Gas: No Data to Display Pancreas Panel: No Data to Display Thyroid Panel: No Data to Display Infectious Disease: No Data to Display Blood Cultures: No Data to Display Toxicology Panel: No Data to Display Anesthesia Assessment and Plan Anesthesia History Personal History: No History of Anesthesia Complications Family History: No Family History of Anesthesia Complications Exercise Tolerance Exercise Tolerance: Metabolic Equivalents>4 Cardiac & Pulmonary Exam Cardiac Exam: Normal S1/S2 Heart Sounds Pulmonary Exam: Clear Bilateral Breath Sounds Implantable Cardiac Device Does patient have a Pacemaker or an ICD?: No Airway Exam Known Difficult Airway: No Mallampati Class: 1 Mouth Opening: Normal (> 3cm) Thyromental Distance: Greater than 3 cm Neck Range of Motion: Full ROM Neck Circumference: Normal Teeth Condition: Normal Dentition ASA Classification ASA Score: ASA 2 Emergency Case?: No NPO Status NPO Status: NPO Clears >2 hours, Solids >8 hours Anesthesia Plan Resuscitation Status: Full Code Anesthesia Technique: General Anesthesia Airway Planned: LMA Monitors Used: Standard Monitors Preoperative Comments:: 46 yo male for left inguinal and umbilical hernia repairs. Sig PMHx: never smoker, occ EtOH/cannabis.
[2022-02-27] MEDS: Bupivacaine 0.5% Pres-Free W/EPI 30 ML VIAL (13:00)
[2022-02-27] MEDS: HYDROmorphone 2 MG/ML SYR IVP ×3 (14:17→14:40)
[2022-02-27] MEDS: traMADol 50 MG TAB PO (15:08)
--- NOTE | 2022-02-27 15:12 | W.ANESPOSTOP ---
Postoperative Evaluation Date, Time and Location Date Performed: 02/27/22 Time Performed: 15:12 Patient Location: Day Surgery Unit Vital Signs Most Recent Imported Vital Signs: Most Recent Vital Signs Temp Pulse Resp BP Pulse Ox 36.5 C 53 L 18 133/94 H 100 02/27/22 14:50 02/27/22 14:50 02/27/22 14:50 02/27/22 14:50 02/27/22 14:50 Pain Score Most Recent Pain Score: Most Recent Pain Score Pain Level 6 02/27/22 14:35 Assessment Mental Status: Awake (Alert & Oriented to Patient Baseline) Airway and Respiratory Function: Patent airway with normal (patient baseline) respiratory exam Cardiovascular Function: Hemodynamically Stable Hydration Status: Adequately Hydrated Nausea & Vomiting: No Nausea or Vomiting Pain: Pain is tolerable per patient Peripheral Nerve Block: Patient did not receive a nerve block
== END 2022-02-27 16:06 | disposition home or self-care (01) ==
PROVIDERS: PCP Nurse Practitioner Adult Health; Visit Provider Surgery
PROC: (CPT 49505; principal; 2022-02-27 10:45)
DX: K40.90 Unilateral inguinal hernia, without obstruction or gangrene, not specified as recurrent (principal); K42.9 Umbilical hernia without obstruction or gangrene
CPT/HCPCS: 49505; 49585; C1781; J0171; J1100; J1170; J1885; J2405; J2704; J3475

== ENCOUNTER 2022-07-29 06:19 | Day surgery (SDC) | payer BC, SELFPAY ==
[2022-07-29 06:40] VITALS: BP 129/90; PULSE 53; RESP 16; TEMP 36.3; O2SAT 99
[2022-07-29] MEDS: Lactated Ringers 1,000 ML 80 ML IV (06:57)
--- NOTE | 2022-07-29 07:17 | W.ANESPRE ---
General Info Date of Service Date Performed: 07/29/22 Height: 5 ft 10 in Weight: 103.4 kg Body Mass Index (BMI): 32.7 Surgical Procedure: Operation Date: 07/29/22 07:35 Proposed Procedure Side Surgeon p Colonoscopy Darrion Landis MD Actual Procedure Side Surgeon p Colonoscopy Not Applicable Darrion Landis MD Meds Allergies and Home Medications Allergies Allergy/AdvReac Type Severity Reaction Status Date / Time venom-honey bee Allergy Severe Anaphylaxsi Verified 07/29/22 06:38 s Penicillins Allergy Unknown Verified 07/29/22 06:38 Current Visit Medications: Current Medications Generic Name Dose Route Start Last Admin Trade Name Freq PRN Reason Stop Dose Admin Ringer's Solution 1,000 mls @ 80 mls/hr 07/29/22 06:00 07/29/22 06:57 IV 08/27/22 23:59 80 mls/hr INFUSION CRUZ Administration IV Miscellaneous Supplies 1 each 07/29/22 06:00 Iv Access IV 08/27/22 23:59 DIRECTED CRUZ Sodium Chloride 0 ml 07/29/22 06:00 Normal Saline Flush 10 Ml Syr IV 08/27/22 23:59 PRN PRN Sodium Chloride 0 ml 07/29/22 06:00 Normal Saline 10 Ml Vial IJ 08/27/22 23:59 DIRECTED PRN Sterile Water 0 ml 07/29/22 06:00 Water,Injection,Sterile 10 Ml Vial IJ 08/27/22 23:59 DIRECTED PRN PFSH Active Problems Active Problems: Problem Status Onset Code Screening for colon cancer Z12.11 Lipoma 08/08/12 D17.9 Medical History Medical History Allergic rhinitis (08/08/12) 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 Tobacco Smoking/Tobacco Use Status: Never Alcohol Alcohol Intake: current Alcohol intake frequency: a few times a month Alcohol type: beer Substance Use Substance use: Occasionally Substance use type: marijuana Vital Signs and Lab Results Vital Signs Most Recent Vital Signs in EMR: Most Recent Vital Signs Temp Pulse Resp BP Pulse Ox 36.3 C L 53 L 16 129/90 99 07/29/22 06:40 07/29/22 06:40 07/29/22 06:40 07/29/22 06:40 07/29/22 06:40 Lab Results Blood Type / Crossmatch: No Data to Display Complete Blood Count: No Data to Display Complete Metabolic Panel: No Data to Display Liver Function Panel: No Data to Display Coagulation Panel: No Data to Display Cardiac Panel: No Data to Display Arterial Blood Gas: No Data to Display Venous Blood Gas: No Data to Display Pancreas Panel: No Data to Display Thyroid Panel: No Data to Display Infectious Disease: No Data to Display Blood Cultures: No Data to Display Toxicology Panel: No Data to Display Anesthesia Assessment and Plan Anesthesia History Personal History: No History of Anesthesia Complications Family History: No Family History of Anesthesia Complications Exercise Tolerance Exercise Tolerance: Metabolic Equivalents>4 Pertinent Negatives Pertinent Negatives: No Symptoms of GERD, No Major Cardiovascular Symptoms or Complaints and No Major Pulmonary Symptoms or Complaints Cardiac & Pulmonary Exam Cardiac Exam: Normal S1/S2 Heart Sounds Pulmonary Exam: Clear Bilateral Breath Sounds Implantable Cardiac Device Does patient have a Pacemaker or an ICD?: No Airway Exam Known Difficult Airway: No Mallampati Class: 1 Mouth Opening: Normal (> 3cm) Thyromental Distance: Greater than 3 cm Neck Range of Motion: Full ROM Neck Circumference: Normal Teeth Condition: Normal Dentition ASA Classification ASA Score: ASA 2 Emergency Case?: No NPO Status NPO Status: NPO Clears >2 hours, Solids >8 hours Anesthesia Plan Resuscitation Status: Full Code Anesthesia Technique: General Anesthesia Airway Planned: Natural Airway Monitors Used: Standard Monitors
[2022-07-29 07:23] VITALS: BMI 32.7
--- NOTE | 2022-07-29 07:52 | BOWEL_PTH ---
PATIENT: Lion Devine LOC: [facility] U#:[id number] AGE/SX: 46/M ROOM: RE07/29/[address]: Darrion Landis : 1975 BED: DIS: 07/29/2022 SPEC #: [id number] RECD: 07/29/22 11:29 STATUS: SP REHarini #: [id number] SHIRLENE: 07/29/22 07:[address]: Darrion Landis DEPT: Surgical Specimen RECD BY: Samia Aj ENTERED: 07/29/22 11:30 SP TYPE: Bowel OTHR DR: Katelyn Germain APRN Tissues: 1 - BIOPSY BOWEL 2 - BIOPSY BOWEL 3 - BIOPSY BOWEL Procedures: GROSS AND MICRO LEVEL 4 Comments: [id number]
[2022-07-29 08:10] VITALS: BP 126/82; PULSE 56; RESP 16; TEMP 36.2; O2SAT 95
--- NOTE | 2022-07-29 08:34 | W.ANESPOSTOP ---
Postoperative Evaluation Date, Time and Location Date Performed: 07/29/22 Time Performed: 08:34 Patient Location: Day Surgery Unit Vital Signs Most Recent Imported Vital Signs: Most Recent Vital Signs Temp Pulse Resp BP Pulse Ox 36.2 C L 56 L 16 126/82 95 07/29/22 08:10 07/29/22 08:10 07/29/22 08:10 07/29/22 08:10 07/29/22 08:10 Pain Score Most Recent Pain Score: Most Recent Pain Score Pain Level 0 07/29/22 08:10 Assessment Mental Status: Awake (Alert & Oriented to Patient Baseline) Airway and Respiratory Function: Patent airway with normal (patient baseline) respiratory exam Cardiovascular Function: Hemodynamically Stable Hydration Status: Adequately Hydrated Nausea & Vomiting: No Nausea or Vomiting Pain: Pt. Denies Any Pain Peripheral Nerve Block: Patient did not receive a nerve block
--- NOTE | 2022-07-29 08:45 | W.COLOREPORT ---
Date of service: 07/29/22 Time of Service: 08:45 Colonoscopy Report Procedure Description: Procedures performed: 1. Colonoscopy with snare polypectomy x1 2. 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 He is not having any issues or any symptoms. He had a colonoscopy 10 years ago that was reportedly normal. He does not have any family history of colon cancer or colon polyps. Findings: Terminal ileum appeared normal and was biopsied routinely because of the unusual history. In the sigmoid colon a 2-3 mm sessile polyp was removed with cold forceps technique. Further along a 3-5 mm sessile polyp was removed with hot snare technique. Multiple hyperplastic?appearing polyps are present in the rectum and these were all ablated with the tip of the hot snare. Surveillance/follow-up recommendations: Juvenile polyps are not precancerous lesions however they do go [id number] with a high risk of colorectal cancer. I think his follow-up should depend on what type of polyps were removed today. If these were all hyperplastic, then I think a 10-year surveillance is adequate. If any of these are adenomatous then I think a 5 year surveillance plan makes more sense considering there may be a small increased risk because of the history when he was a child. Complications: None Blood loss: Minimal Specimens:?? YES Quality of Prep:?? Good Procedure in detail: Written consent was obtained from the patient who was in agreement with the risks, benefits and indications of the procedure.? We went to the endoscopy suite and laid the patient in left lateral decubitus position.? Anesthesia was administered which was tolerated well.? A timeout was performed and when we are all in agreement we began the procedure. Digital rectal exam and visual examination was performed and within normal limits.? A well?lubricated colonoscope was advanced without difficulty all the way to the cecum identified by the ileocecal valve, and triangular folds and appendiceal orifice. The terminal ileum was intubated. The scope was then slowly withdrawn.?? Retroflexion was performed in the rectum.? The findings/interventions are noted above. The scope was then removed and the patient tolerated the procedure well and was then taken back to the PACU in hemodynamically stable condition.
[2022-07-29 08:50] VITALS: BP 132/91; PULSE 48; RESP 16; TEMP 36.5; O2SAT 100
== END 2022-07-29 09:08 | disposition home or self-care (01) ==
PROVIDERS: PCP Nurse Practitioner Adult Health; Visit Provider Student in an Organized Health Care Education/Training Program
PROC: 0DJD8ZZ Inspection of Lower Intestinal Tract, Via Natural or Artificial Opening Endoscopic (ICD-10-PCS; CPT 45378; principal; 2022-07-29 07:30)
DX: Z12.11 Encounter for screening for malignant neoplasm of colon (principal); K63.5 Polyp of colon; Z86.010 Personal history of colon polyps
CPT/HCPCS: 45388; 45385; 88305

== ENCOUNTER 2024-05-22 11:22 | Outpatient (REF) | payer BC, SELFPAY ==
[2024-05-22 16:31] LABS: Anion Gap 10.2 mmol/L (3-11); BUN 17 mg/dL (7-18); CO2 24.8 mmol/L (21.0-32.0); CREATININE 1.2 mg/dL (0.70-1.30); Calcium 9.2 mg/dL (8.5-10.1); Calculated LDL 163 mg/dL (<100); Chloride 108 mmol/L (98-107); Cholesterol 233 mg/dL (<200); Estimated GFR 73.67 (mL/min/1.73m2); Glucose 114 mg/dL (74-106); HDL Cholesterol 53 mg/dL (40-60); Potassium 4.3 mmol/L (3.5-5.1); Sodium 143 mmol/L (136-145); Triglyceride 85 mg/dL (<150)
== END 2024-05-22 11:23 | disposition home or self-care (01) ==
LOC: LBN 11:22
PROVIDERS: PCP Nurse Practitioner Adult Health; Visit Provider Nurse Practitioner Adult Health
DX: Z13.220 Encounter for screening for lipoid disorders (principal); Z13.1 Encounter for screening for diabetes mellitus
CPT/HCPCS: 80048; 80061

== ENCOUNTER 2024-10-25 04:03 | Outpatient (CLI) | payer BC, SELFPAY ==
[2024-10-25 09:44] LABS: Calculated LDL 126 mg/dL (<100); Cholesterol 227 mg/dL (<200); HDL Cholesterol 44 mg/dL (>or=40); Triglyceride 286 mg/dL (<150)
== END 2024-10-25 04:04 | disposition home or self-care (01) ==
PROVIDERS: PCP Nurse Practitioner Adult Health; Visit Provider Emergency Medicine
DX: E78.5 Hyperlipidemia, unspecified (principal)
CPT/HCPCS: 36415; 80061